=== PATIENT | male | born 1950 | race Caucasian/White ===

== ENCOUNTER → 2018-05-02 01:50 | Outpatient (CLI) | payer MEDICARE, OTHER, SELFPAY ==
[2018-05-02 08:35] LABS: Cholesterol 171 mg/dL (50-200); HDL Cholesterol 35 mg/dL (40-60); LDL CHOLESTEROL 104 mg/dL (<100); Triglyceride 179 mg/dL (30-150)
== END ==
PROVIDERS: PCP Family Medicine; Visit Provider Internal Medicine
DX: E78.5 Hyperlipidemia, unspecified (principal)
CPT/HCPCS: 36415; 80061; 83721

== ENCOUNTER 2018-07-23 11:06 | Outpatient (CLI) | payer MEDICARE, OTHER, SELFPAY ==
[2018-07-23 13:07] LABS: Cholesterol 187 mg/dL (50-200); Glucose 123 mg/dL (70-100); HDL Cholesterol 35 mg/dL (40-60); LDL CHOLESTEROL 127 mg/dL (<100); Triglyceride 168 mg/dL (30-150)
[2018-07-24 09:54] LABS: PSA, Screening 2.1 ng/ml (0-4.5)
== END 2018-07-23 11:26 ==
PROVIDERS: PCP Internal Medicine; Visit Provider Family Medicine
DX: N40.0 Benign prostatic hyperplasia without lower urinary tract symptoms (principal); E78.5 Hyperlipidemia, unspecified; R73.01 Impaired fasting glucose; Z12.5 Encounter for screening for malignant neoplasm of prostate
CPT/HCPCS: 36415; 80061; 82947; 83721; 84153

== ENCOUNTER 2018-07-31 01:09 | Outpatient (CLI) | payer MEDICARE, OTHER, SELFPAY ==
[2018-07-31 07:47] LABS: Hemoglobin A1C 5.7 % (4.5-6.2)
== END 2018-07-31 01:29 ==
PROVIDERS: PCP Family Medicine; Visit Provider Family Medicine
DX: R73.01 Impaired fasting glucose (principal); E78.5 Hyperlipidemia, unspecified
CPT/HCPCS: 36415; 80061; 83721; 83036

== ENCOUNTER 2019-07-29 09:32 | Outpatient (CLI) | payer MEDICARE, OTHER, SELFPAY ==
[2019-07-29 11:02] LABS: Calculated LDL 105 mg/dL; Cholesterol 168 mg/dL (50-200); HDL Cholesterol 37 mg/dL (40-60); Triglyceride 133 mg/dL (30-150)
[2019-07-30 10:36] LABS: PSA, Screening 2.8 ng/ml (0-4.5)
== END 2019-07-29 09:52 ==
PROVIDERS: PCP Family Medicine; Visit Provider Family Medicine
DX: E78.5 Hyperlipidemia, unspecified (principal); R73.01 Impaired fasting glucose; N40.0 Benign prostatic hyperplasia without lower urinary tract symptoms; Z12.5 Encounter for screening for malignant neoplasm of prostate
CPT/HCPCS: 36415; 80061; 84153; 83036

== ENCOUNTER 2020-05-01 08:18 | Emergency (ER) | payer MEDICARE, OTHER, SELFPAY ==
[2020-05-01] VITALS (24 sets, daily range): BP systolic 125–147; BP diastolic 64–75; PULSE 75–89; RESP 16; TEMP 36.2–36.3; O2SAT 94–99
--- NOTE | 2020-05-01 08:30 | DI.CT_ITS ---
EXAM: CT ABDOMEN PELVIS W CLINICAL HISTORY: Left lower quadrant pain, decreased bowel movement TECHNIQUE: Imaging Protocol: Axial computed tomography images with coronal and sagittal reformatted images were created and reviewed CONTRAST MATERIAL: Intravenous: Omnipaque 350 Contrast volume:100 mL Oral: No COMPARISON: CT ABD PELVIS WITH CONTRAST from 06/09/2010 FINDINGS: ABDOMEN: Lung Bases: Normal where visualized. Liver: Normal density. No measurable mass. Portal, Superior Mesenteric, and Splenic Veins: Unremarkable. Gallbladder and Biliary Tract: No radiodense calculus or dilation. Pancreas: Normal density. No abnormal calcifications. There is inflammatory stranding seen around t he pancreas. No focal fluid collection is seen. Spleen: Normal. Adrenals: No masses seen. Kidneys: Normal size, contour and axis. No radiodense stones or obstructive uropathy. No masses seen. Abdominal Aorta: Abdominal portion non-dilated. Atherosclerosis. Bowel: No obstruction or bowel wall thickening. Appendix is unremarkable. Peritoneal Cavity: No ascites, collection or mesenteric inflammatory response. Lymph Nodes: Within normal limits. Bones: There is an intramedullary lesion in the intertrochanteric region of the right femur. Its radha earance is most suggestive of an enchondroma. Mild retrolisthesis of L1 on L2. Degenerative changes seen in the spine. Soft Tissues: Unremarkable. PELVIS: Bladder: Symmetric distention, no gross wall thickening. Reproductive Organs: Unremarkable as visualized. Lymph Nodes: Within normal limits. Bones: Please see above. IMPRESSION: Findings most suggestive of acute pancreatitis. No focal fluid collection. RADIATION DOSE DELIVERED: 1,156.29mGy.cm Total DLP DATA REPOSITORY: All CT scans at this facility are submitted to the National Radiology Data Registry (NRDR) Dose Index Registry (DIR) with the [employer] (ACR). RADIATION OPTIMIZATION: All CT scans at this facility use at least one of these dose optimization te chniques: automated exposure control; mA and/or kV adjustment per patient size (includes targeted exa ms where dose is matched to clinical indication); or iterative reconstruction.
--- NOTE | 2020-05-01 08:36 | ED.GENADUL_ITS ---
Discharge Plan Disposition Patient Disposition: HOME Condition: Stable Discharge Details Chief Complaint: Abd Prob Clinical Impression: Pancreatitis, Enchondroma of right femur Primary Care Provider: Anam Sanon ED Provider: Mane Moss Home Meds and New Rx's Prescriptions: New oxycodone-acetaminophen [Percocet] 5-325 mg tablet 1 tab PO Q8H PRNQty: 8 RF: 0 ondansetron HCl [Zofran] 4 mg tablet 4 mg PO Q8H PRNQty: 8 RF: 0 Continued pravastatin 80 mg tablet 80 mg PO DAILY Qty: 90 RF: 3 omeprazole 20 mg capsule,delayed release(DR/EC) 20 mg PO DAILY PRN (Reason: gerd) Qty: 90 RF: 4 Discharge Instructions Instructions: Pancreatitis (ED), Benign Bone Tumor (DC) Additional Instructions: Your laboratory values and CT reveal that you have pancreatitis. Incidentally we saw a bone tumor on the right femur. Admission was offered today but you are feeling well and have declined. As we discussed, plenty of fluids, clear liquid diet, bowel rest. Advance diet as tolerated. I am providing a prescription for Percocet and Zofran. Take as directed. Percocet may cause drowsiness and/or constipation. Please watch for new or worsening symptoms and return to the ER for any concerns. I have set you up for an outpatient lab draw for your repeat values on 05-03-20 at 11:10 AM. I have also placed you on the callback list to help expedite outpatient appointment with your primary care provider hopefully on Saturday after your laboratory draw. They should be calling you tomorrow but if you do not hear from them early in the afternoon I do recommend you contact them. As we discussed, the izzy lesion is likely benign however outpatient follow-up with your primary care provider is still a good idea Medical Decision Making 69-year-old gentleman presents with left lower quadrant pain, lack of bowel movement for the past 3 days. He denies any symptoms like this in the past, denies previous abdominal surgeries. No other symptoms such as nausea, vomiting, chest pain, fever, back pain, dysuria, diarrhea, black tarry stools or bright red blood in his stools. He does have reproducible discomfort on palpation although there is no guarding or rebound. Will obtain routine laboratory values including lactate, will give IV fluid and obtain CT imaging of abdomen and pelvis for further evaluation. Diagnosis includes but not excluded to diverticulitis, pancreatitis, small bowel obstruction, ileus, UTI, renal stone, pyelonephritis, AAA etc. Laboratory values reveal a white count of 16.41 hemoglobin 15 hematocrit 45.5 platelet count 232. Sodium 135 potassium 3.8 chloride 99, creatinine 1.12 with a GFR greater than 60. Glucose of 123. Lactate 0.7 total bili 0.8 AST 16 ALT 23 alk phos 88. Lipase 3055. Urinalysis still pending. CT pending. I did discuss initial findings with patient. He denies history of pancreatitis. He does not drink alcohol on a regular basis. CT imaging read by virtual radiology as peripancreatic inflammation consistent with mild acute pancreatitis. Likely enchondroma of the right proximal femur Discussed CT findings with patient. Discussed treatment options. We discussed admitting him for bowel rest, IV medications, observation but at this time he declines and would prefer to be discharged home. Instead, we will provide IV fluid, Zofran, morphine now, p.o. challenge and reassess. If he tolerates this well we can certainly trial outpatient therapy with very close outpatient follow-up and return precautions. On reevaluation patient reports significant improvement with the medication and was able to tolerate p.o. intake without difficulty. Patient prefers to be discharged home. At this time I believe this is reasonable but as above we discussed the importance of close outpatient follow-up and the importance of returning to the ER for new or evolving symptoms. I will set the patient up for an outpatient blood draw on Saturday morning, 2 days from now, for a CBC, CMP and lipase. I will have the results sent to [facility] and in the meantime we will work on getting him an appointment for follow-up on Saturday after his labs are drawn. Medical Records Medical records reviewed: Yes I reviewed the patient's medical records. Lab Data Lab results reviewed: Yes I reviewed the patient's lab results. Lab results narrative: Laboratory Tests Range/Units 05/01/20 05/01/20 05/01/20 08:30 08:30 08:54 WBC (4.4-10.8) 10^3/uL 16.41 H RBC (4.36-5.78) 10^6/uL 5.13 Hgb (13.5-17.5) g/dL 15.0 Hct (40.0-50.0) % 45.5 MCV (80-95) fL 88.7 MCH (27.0-33.0) pg 29.2 MCHC (32.0-36.0) % 33.0 RDW (11.8-14.1) % 12.7 Plt Count (130-400) 10^3/uL 232 MPV (8.0-11.0) fL 10.4 Immature Gran % See Differential Neutrophils % 78.0 Lymphocytes % 7.0 Atypical Lymphs % 2 Monocytes % 13.0 Eosinophils % 0.0 Basophils % 0.0 Metamyelocytes % 0 Myelocytes % 0 Promyelocytes % 0 Absolute Neutrophils (1.2-6.7) 10^3/uL 12.80 H Absolute Lymphocytes (1.2-3.4) 10^3/uL 1.48 Absolute Monocytes (0.1-0.8) 10^3/uL 2.13 H Absolute Eosinophils (0.0-0.7) 10^3/uL 0.00 Absolute Basophils (0.0-0.2) 10^3/uL 0.00 RBC Morphology Normal Sodium (136-145) mmol/L 135 L Potassium (3.5-5.1) mmol/L 3.8 Chloride (98-107) mmol/L 99 Carbon Dioxide (21.0-32.0) mmol/L 25.1 Anion Gap (3-11) mmol/L 10.9 BUN (7-18) mg/dL 13 Creatinine (0.70-1.30) mg/dL 1.12 Estimated GFR/1.73 m2 (mL/min/1.73m2) >= 60.00 Glucose (74-106) mg/dL 123 H Lactate (0.6-1.4) mmol/L 0.7 Calcium (8.5-10.1) mg/dL 9.3 Total Bilirubin (0.2-1.0) mg/dL 0.8 AST (15-37) U/L 16 ALT (16-63) U/L 23 Alkaline Phosphatase (46-116) U/L 80 Total Protein (6.4-8.2) g/dL 8.6 H Albumin (3.4-5.0) g/dL 4.0 Lipase (73-393) U/L 3055 H Urine Color (Yellow) Urine Clarity (Clear) Urine pH (5-8) Ur Specific [place] (1.005-1.025) Urine Protein (Negative) mg/dL Urine Ketones (Negative) mg/dL Urine Blood (Negative) Urine Nitrite (Negative) Urine Bilirubin (Negative) Urine Urobilinogen (Up TO 0.2) EU/dL Ur Leukocyte Esterase (Negative) Urine RBC (0-2) HPF Urine WBC (0-5) HPF Ur Epithelial Cells (Negative) HPF Urine Crystals (Negative) HPF Urine Bacteria (Negative) HPF Urine Casts (Negative) LPF Urine Mucus (Negative) Ur Culture Indicated? Urine Glucose (Negative) mg/dL Range/Units 05/01/20 10:16 WBC (4.4-10.8) 10^3/uL RBC (4.36-5.78) 10^6/uL Hgb (13.5-17.5) g/dL Hct (40.0-50.0) % MCV (80-95) fL MCH (27.0-33.0) pg MCHC (32.0-36.0) % RDW (11.8-14.1) % Plt Count (130-400) 10^3/uL MPV (8.0-11.0) fL Immature Gran % Neutrophils % Lymphocytes % Atypical Lymphs % Monocytes % Eosinophils % Basophils % Metamyelocytes % Myelocytes % Promyelocytes % Absolute Neutrophils (1.2-6.7) 10^3/uL Absolute Lymphocytes (1.2-3.4) 10^3/uL Absolute Monocytes (0.1-0.8) 10^3/uL Absolute Eosinophils (0.0-0.7) 10^3/uL Absolute Basophils (0.0-0.2) 10^3/uL RBC Morphology Sodium (136-145) mmol/L Potassium (3.5-5.1) mmol/L Chloride (98-107) mmol/L Carbon Dioxide (21.0-32.0) mmol/L Anion Gap (3-11) mmol/L BUN (7-18) mg/dL Creatinine (0.70-1.30) mg/dL Estimated GFR/1.73 m2 (mL/min/1.73m2) Glucose (74-106) mg/dL Lactate (0.6-1.4) mmol/L Calcium (8.5-10.1) mg/dL Total Bilirubin (0.2-1.0) mg/dL AST (15-37) U/L ALT (16-63) U/L Alkaline Phosphatase (46-116) U/L Total Protein (6.4-8.2) g/dL Albumin (3.4-5.0) g/dL Lipase (73-393) U/L Urine Color (Yellow) Yellow Urine Clarity (Clear) Clear Urine pH (5-8) 6.0 Ur Specific [place] (1.005-1.025) <= 1.005 Urine Protein (Negative) mg/dL Negative Urine Ketones (Negative) mg/dL 40 H Urine Blood (Negative) Trace-lysed H Urine Nitrite (Negative) Negative Urine Bilirubin (Negative) Negative Urine Urobilinogen (Up TO 0.2) EU/dL 0.2 Ur Leukocyte Esterase (Negative) Negative Urine RBC (0-2) HPF 0-2 Urine WBC (0-5) HPF 0-2 Ur Epithelial Cells (Negative) HPF Negative Urine Crystals (Negative) HPF Negative Urine Bacteria (Negative) HPF Negative Urine Casts (Negative) LPF Negative Urine Mucus (Negative) Trace Ur Culture Indicated? No Urine Glucose (Negative) mg/dL Negative HPI General Mode of arrival: ambulatory . Date/Time Provider Initiated Documentation: 05/01/20 08:19 . Limitations to Documentation: no limitations . Information obtained by: patient . HPI Narrative: This is a 69-year-old gentleman with past medical history that includes GERD, hyperlipidemia, BPH, presenting for evaluation of left lower abdominal pain that began on Saturday, has been constant, dull, aching, 7 out of 10. He has not had a bowel movement in 3 days. He denies recent sick contacts, travel or bad food exposure. He denies fever, chest pain, shortness of breath, nausea, vomiting, diarrhea, black tarry stools, bright red blood in stools, dysuria, hematuria. The pain does not radiate. There is nothing he can do to make the pain worse or better. He spoke with a friend who is a nurse and he presents concerned about diverticulitis. Denies history of diverticulosis. Related Data Home Medications Medication Instructions Recorded Confirmed pravastatin 80 mg tablet 80 mg PO DAILY #90 tab-cap 10/25/19 08/09/20 omeprazole 20 mg capsule,delayed 20 mg PO DAILY PRN #90 tab-cap 01/08/20 05/01/20 release ondansetron HCl [Zofran] 4 mg PO Q8H PRN #8 tab 05/01/20 oxycodone-acetaminophen [Percocet] 1 tab PO Q8H PRN #8 tab 05/01/20 Previous Rx's Medication Instructions Recorded pravastatin 80 mg tablet 80 mg PO DAILY #90 tab-cap 07/17/19 omeprazole 20 mg capsule,delayed 20 mg PO DAILY PRN #90 tab-cap 01/08/20 release ondansetron HCl [Zofran] 4 mg PO Q8H PRN #8 tab 05/01/20 oxycodone-acetaminophen [Percocet] 1 tab PO Q8H PRN #8 tab 05/01/20 Allergies Allergy/AdvReac Type Severity Reaction Status Date / Time No Known Allergies Allergy Verified 05/01/20 08:27 General Stated Complaint: Abd Prob MELQUIADES: 3 Review of Systems Constitutional Constitutional: Denies fatigue, Denies fever(s) and Denies headache(s) ENT Ears, Nose, Mouth, and Throat: Denies headache(s) and Denies neck pain Cardiovascular Cardiovascular: Denies chest pain and Denies dyspnea Respiratory Respiratory: Denies cough and Denies dyspnea Gastrointestinal Gastrointestinal: Denies abdominal pain, Denies melena, Denies hematochezia, Reports constipation, Denies diarrhea and Denies vomiting Genitourinary Genitourinary: Denies urinary frequency Musculoskeletal Musculoskeletal: Denies back pain and Denies neck pain Integumentary/Breasts Skin/Breast: Denies rash Neurologic Neurologic: Denies headache(s) Endocrine Endocrine: Denies fatigue Hematologic/Lymphatic Hematologic/Lymphatic: Denies easy bleeding and Denies easy bruising PFSH Surgical History Extraction of cataract (~2000) o.u. Family History Mother , AGE 77 Diabetes Heart disease Breast cancer Father , AGE 74 Hyperlipidemia Prostate cancer Brother Prostate cancer Brother Prostate cancer Brother No problems noted. Maternal Grandfather , AGE 61 Heart disease Throat cancer Maternal Grandmother , AGE 85 No problems noted. Paternal Grandmother , AGE 85 No problems noted. Son No problems noted. Daughter No problems noted. Social History Smoking/Tobacco Use Status: Former Tobacco Use Second Hand Exposure: Yes Alcohol Intake: current Alcohol Intake frequency: a few times a month Alcohol type: beer and hard liquor Drug use: Never Substance use type: does not use Caregiver/Support person: No Household members: none Housing: house Communication Needs: None Do you need help understanding health information?: Rarely Pets and animals: No Sexually active: No Do you think of yourself as: straight/heterosexual Current gender identity: male What is your relationship status?: How often do you talk on the phone with friends or family?: three or more times per week How often do you get together with friends or relatives?: three or more times per week How often do you attend mosque or confucianism services?: decline to answer Do you belong to any clubs or organized social groups?: yes Panel score (0-1 are the most socially isolated patients): 2 What type of physical activity do you participate in: other Details: Yard work, snowmobiling, hunting/fishing Duration: 30-45 minutes/day Frequency: daily Masha/Jewish: Church Special masha needs: No Seatbelt use: always Helmet use: Yes Helmet use: always Drive intox or ride w/intox 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 Exam Const General: cooperative, healthy appearing, comfortable and no acute distress Orientation: alert, awake and oriented x3 HENIA Head: normal to inspection, normocephalic and atraumatic Mouth: moist mucous membranes Eyes Conjunctivae: conjunctivae normal Sclera: sclerae normal Neck Neck: normal visual inspection, trachea midline and supple Resp Effort & Inspection: normal respiratory effort and able to speak in complete sentences Auscultation: clear to auscultation bilaterally Cardio Rate: regular rate Rhythm: regular rhythm GI Inspection: normal to inspection Palpation: soft, not firm, no guarding and tender in the LLQ; with no rebound tenderness Auscultation: normal bowel sounds Back/Spine/Pelvis Back: No back tenderness Skin General skin exam: no rashes or lesions noted Neuro General: patient alert, patient awake, patient oriented x3, moves all extremities and no focal motor deficits Cranial Nerves: CN's II-XI intact bilaterally Cognition: normal cognition Speech: speech normal Gait: normal gait Motor: muscle tone normal throughout Sensory Exam: no sensory deficits noted Extrem General: normal to inspection, full ROM, capillary refill normal, no pedal edema and no calf tenderness Psych Appearance: grossly normal Mental Status: mental status grossly normal Course Vital Signs Vital signs: Vital Signs Temperature 36.2 C L 05/01/20 08:24 Pulse 89 05/01/20 08:24 Respiratory Rate 16 05/01/20 08:24 Blood Pressure 147/75 H 05/01/20 08:24 Pulse Oximetry 98 05/01/20 08:24 Temperature 36.2 C L 05/01/20 08:24 Temperature Source Skin 05/01/20 08:24 Pulse 89 05/01/20 08:24 Respiratory Rate 16 05/01/20 08:24 Respiratory Effort Non-Labored 05/01/20 08:24 Blood Pressure 147/75 H 05/01/20 08:24 Blood Pressure Position Sitting 05/01/20 08:24 Pulse Oximetry 98 05/01/20 08:24 Oxygen Delivery Method Room Air 05/01/20 08:24 Oxygen Flow Rate 0 05/01/20 08:24 Pain Level 8 05/01/20 08:24
[2020-05-01] MEDS: Normal Saline 1,000 ML 1000 ML IV ×2 (08:45→10:48)
[2020-05-01 08:48] LABS: HCT 45.5 % (40.0-50.0); MCH 29.2 pg (27.0-33.0); MCV 88.7 fL (80-95); MPV 10.4 fL (8.0-11.0); Nucleated RBC 0 %; Platelet Count 232 10^3/uL (130-400); RBC 5.13 10^6/uL (4.36-5.78); RDW 12.7 % (11.8-14.1); RDW-SD 41.3 fL; WBC 16.41 10^3/uL (4.4-10.8)
[2020-05-01 09:03] LABS: Lactate 0.7 mmol/L (0.6-1.4)
[2020-05-01 09:04] LABS: Absolute Monocyte Count 2.13 10^3/uL (0.1-0.8)
[2020-05-01 09:05] LABS: Absolute Lymphocyte Count 1.48 10^3/uL (1.2-3.4); Atypical Lymphocytes % 2; Diff Comment Manual Differential; Metamyelocytes % 0; Myelocytes % 0; Promyelocytes % 0; RBC Morphology Normal
[2020-05-01 09:08] LABS: ALT 23 U/L (16-63); AST 16 U/L (15-37); Alkaline Phosphatase 80 U/L (46-116); Anion Gap 10.9 mmol/L (3-11); BUN 13 mg/dL (7-18); Bilirubin, Total 0.8 mg/dL (0.2-1.0); CO2 25.1 mmol/L (21.0-32.0); CREATININE 1.12 mg/dL (0.70-1.30); Calcium 9.3 mg/dL (8.5-10.1); Chloride 99 mmol/L (98-107); Glucose 123 mg/dL (74-106); Potassium 3.8 mmol/L (3.5-5.1); Sodium 135 mmol/L (136-145); Total Protein 8.6 g/dL (6.4-8.2)
[2020-05-01 09:10] LABS: Lipase 3055 U/L (73-393)
[2020-05-01] MEDS: Omnipaque 350 MG/ML 100 ML BTL IV (09:40)
[2020-05-01] MEDS: Normal Saline - Diluent 50 ML VIAL IV (09:41)
[2020-05-01] MEDS: Normal Saline Flush 10 ML SYR IVP (09:42)
[2020-05-01 10:26] LABS: Bilirubin Negative (Negative); Blood Trace-lysed (Negative); Clarity Clear (Clear); Glucose Negative (Negative); Ketones 40 mg/dL (Negative); Leukocyte Esterase Negative (Negative); Nitrite Negative (Negative); Specific Gravity <= 1.005 (1.005-1.025); Urobilinogen 0.2 EU/dL (Up TO 0.2)
--- NOTE | 2020-05-01 10:31 | DI.VRAD_ITS ---
PROCEDURE INFORMATION: Exam: CT Abdomen And Pelvis With Contrast Exam date and time: 05/01/2020 8:38 AM Age: 69 years old Clinical indication: Other: Left lower quadrant pain, decreased bowel movement; Additional info: Left lower quadrant pain, decreased bowel movement since 04/29/20 TECHNIQUE: Imaging protocol: Computed tomography of the abdomen and pelvis with intravenous contrast. Radiation optimization: All CT scans at this facility use at least one of these dose optimization techniques: automated exposure control; mA and/or kV adjustment per patient size (includes targeted exams where dose is matched to clinical indication); or iterative reconstruction. Contrast material: OMNIPAQUE 350; Contrast volume: 100 ml; Contrast route: INTRAVENOUS (IV); COMPARISON: No relevant prior studies available. FINDINGS: Liver: Unremarkable. No mass. Gallbladder and bile ducts: Unremarkable. No calcified stones. No ductal dilation. Pancreas: There is mild peripancreatic inflammatory stranding and fluid. Spleen: Unremarkable. No splenomegaly. Likely incidental subcentimeter splenule. Adrenals: Unremarkable. No mass. Kidneys and ureters: Unremarkable. No hydronephrosis. Stomach and bowel: Unremarkable. No obstruction. No mucosal thickening. Appendix: No evidence of appendicitis. Intraperitoneal space: Unremarkable. No free air. No significant fluid collection. Vasculature: Unremarkable. No abdominal aortic aneurysm. Lymph nodes: No enlarged lymph nodes. Bladder: Unremarkable as visualized. Reproductive: Unremarkable as visualized. Bones/joints: Lumbar spondylosis. Transitional lumbosacral anatomy with 6 [id number] lumbar vertebral bodies. Grade 1 retrolisthesis of L2 on L3. Pronounced degenerative disc disease of L5-L6 with moderate to severe bilateral neural foraminal narrowing. There is a 2.8 cm right femoral intratrochanteric intramedullary lesion with a narrow zone of transition, sharply defined margins and ring and arc calcifications. No endosteal scalloping and nonexpansile. No gross bone destruction, no periosteal reaction and no soft tissue mass. Soft tissues: Unremarkable. IMPRESSION: 1. Peripancreatic inflammation consistent with mild acute pancreatitis. 2. Likely enchondroma of the right proximal femur as described above. Dictated and Authenticated by: Dez Fry MD. Ordering:LESLIE Gilliam MD
[2020-05-01 10:37] LABS: Bacteria Negative HPF (Negative); C & S Indicated? No; Casts Negative LPF (Negative); Crystals Negative HPF (Negative); Epithelial Cells Negative HPF (Negative); Mucus Trace (Negative); RBC 0-2 HPF (0-2); WBC 0-2 HPF (0-5)
[2020-05-01] MEDS: Ondansetron 4 MG/2 ML VIAL IVP (10:47)
--- NOTE | 2020-05-01 11:38 | NUR.NOTE ---
Nursing Note: Referral for follow up with [facility] after the lab draw on @ 11:10am. Laly Flores
== END 2020-05-01 12:15 | disposition home or self-care (01) ==
PROVIDERS: Emergency Provider Physician Assistant; PCP Family Medicine
DX: K85.80 Other acute pancreatitis without necrosis or infection (principal); K59.00 Constipation, unspecified
CPT/HCPCS: 36415; 80053; 83690; 96361; 96374; 96375; 99285; 74177; 81003; 81015; 83605; 85025; J2405; J3490

== ENCOUNTER 2020-05-03 04:11 | Outpatient (CLI) | payer MEDICARE, OTHER, SELFPAY ==
[2020-05-03 11:39] LABS: Abs Immature Grans 0.05 10^3/uL (0.0-0.06); Absolute Basophil Count 0.02 10^3/uL (0.0-0.2); Absolute Eosinophil Count 0.12 10^3/uL (0.0-0.7); Absolute Lymphocyte Count 0.74 10^3/uL (1.2-3.4); Absolute Monocyte Count 1.42 10^3/uL (0.1-0.8); Absolute Neutrophil Count 8.18 10^3/uL (1.2-6.7); Basophils % 0.2; Eosinophils % 1.1; HCT 38.8 % (40.0-50.0); HGB 12.8 g/dL (13.5-17.5); Immature Grans % 0.5; MCH 29.7 pg (27.0-33.0); MPV 9.2 fL (8.0-11.0); Monocytes % 13.5; Neutrophils % 77.7; Nucleated RBC 0 %; Platelet Count 277 10^3/uL (130-400); RBC 4.31 10^6/uL (4.36-5.78); RDW 12.4 % (11.8-14.1); WBC 10.53 10^3/uL (4.4-10.8)
[2020-05-03 11:54] LABS: ALT 20 U/L (16-63); AST 13 U/L (15-37); Albumin 3.2 g/dL (3.4-5.0); Alkaline Phosphatase 68 U/L (46-116); Anion Gap 7.1 mmol/L (3-11); BUN 14 mg/dL (7-18); Bilirubin, Total 0.5 mg/dL (0.2-1.0); CO2 27.9 mmol/L (21.0-32.0); CREATININE 1.12 mg/dL (0.70-1.30); Calcium 8.8 mg/dL (8.5-10.1); Chloride 100 mmol/L (98-107); Glucose 137 mg/dL (74-106); Lipase 299 U/L (73-393); Sodium 135 mmol/L (136-145); Total Protein 7.5 g/dL (6.4-8.2)
== END 2020-05-03 04:31 ==
PROVIDERS: PCP Family Medicine; Visit Provider Physician Assistant
DX: K85.90 Acute pancreatitis without necrosis or infection, unspecified (principal)
CPT/HCPCS: 36415; 80053; 83690; 85025

== ENCOUNTER 2020-11-11 00:49 | Outpatient (CLI) | payer MEDICARE, OTHER, SELFPAY ==
--- NOTE | 2020-11-11 08:15 | DI.RAD_ITS ---
EXAM: XR KNEE LT 3V AP,LAT,LIVIER CLINICAL HISTORY: left knee pain,M25.562. TECHNIQUE: 2D digital imaging was performed. COMPARISON: No exams were available for comparison FINDINGS: There is moderate narrowing to severe narrowing of the medial femoral tibial joint. There is mild pe riarticular spurring and sclerosis. There is spurring at the articular aspect of the patella as well as enthesophytes. Small calcification is seen adjacent to the medial femoral condyle which could re present ligamentous calcification. 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 DATA REPOSITORY: RADIATION DOSE DELIVERED:
--- NOTE | 2020-11-11 13:15 | DI.RAD_ITS ---
EXAM: XR KNEE RT 3V AP,LAT,LIVIER CLINICAL HISTORY: knee pain bilateral,rt knee pain,m25.561. TECHNIQUE: 2D digital imaging was performed. COMPARISON: CR XR KNEE LT 3V AP,LAT,LIVIER from 11/11/2020 FINDINGS: There is moderate to severe narrowing medial femoral tibial joint space. There is mild periarticular spurring. There is mild spurring at the articular aspect of the patella. Enthesophytes are also se en at the patella. IMPRESSION: Moderate to severe degenerative changes of the medial femoral tibial joint.. DATA REPOSITORY: RADIATION DOSE DELIVERED:
== END 2020-11-11 00:50 ==
LOC: DI 00:50
PROVIDERS: PCP Family Medicine; Visit Provider Family Medicine
DX: M25.561 Pain in right knee (principal); M25.562 Pain in left knee; M17.0 Bilateral primary osteoarthritis of knee
CPT/HCPCS: 73562

== ENCOUNTER 2020-11-24 04:00 | Outpatient (CLI) | payer MEDICARE, OTHER, SELFPAY ==
[2020-11-24 07:38] LABS: Hemoglobin A1C 5.9 % (<5.7)
[2020-11-24 08:03] LABS: Calculated LDL 97 mg/dL (<100); Cholesterol 188 mg/dL (<200); HDL Cholesterol 36 mg/dL (40-60); Triglyceride 276 mg/dL (<150)
[2020-11-24 17:31] LABS: PSA, Screening 2.8 ng/mL (0.0-6.5)
== END 2020-11-24 04:01 | disposition home or self-care (01) ==
LOC: LBO 04:00
PROVIDERS: PCP Family Medicine; Visit Provider Family Medicine
DX: E78.5 Hyperlipidemia, unspecified (principal); R73.9 Hyperglycemia, unspecified; N40.0 Benign prostatic hyperplasia without lower urinary tract symptoms; Z12.5 Encounter for screening for malignant neoplasm of prostate
CPT/HCPCS: 36415; 80061; 84153; 83036

== ENCOUNTER 2021-04-05 13:57 | Outpatient (CLI) | payer MEDICARE, OTHER, SELFPAY ==
--- NOTE | 2021-04-05 11:19 | DI.RAD_ITS ---
Exam(s) XR CHEST 2V PA LATERAL EXAM: XR CHEST 2V PA LATERAL CLINICAL HISTORY: COUGH R05. TECHNIQUE: 2D digital imaging was performed. COMPARISON: No exams were available for comparison FINDINGS: Heart size is normal. The mediastinum is not widened. Left lung is clear. Mild increased markings in the right lung base noted, not evident on the previou s study of 2011. No confluent infiltrate seen on the lateral view and therefore this possibly is rel ated to gynecomastia. There are no pleural effusions. No pulmonary edema. No pneumothorax impression IMPRESSION: Subtle lower right lung field finding as described above. If clinically indicated this could be furt her studied with CT scan.There is possibly that this may be related to overlying gynecomastia. DATA REPOSITORY: RADIATION DOSE DELIVERED:
== END 2021-04-05 14:17 ==
PROVIDERS: PCP Family Medicine; Visit Provider Physician Assistant Medical
DX: R05 Cough (principal)
CPT/HCPCS: 71046

== ENCOUNTER 2021-04-05 14:34 | Outpatient (REF) | payer MEDICARE, OTHER, SELFPAY ==
[2021-04-07 11:49] LABS: COVID-19 RT-PCR UVMMC Result Negative (Negative)
== END 2021-04-05 14:35 | disposition home or self-care (01) ==
LOC: LBN 14:34
PROVIDERS: PCP Family Medicine; Visit Provider Physician Assistant Medical
DX: Z20.822 Contact with and (suspected) exposure to COVID-19 (principal); J06.9 Acute upper respiratory infection, unspecified
CPT/HCPCS: U0003

== ENCOUNTER 2021-04-06 02:00 | Outpatient (CLI) | payer MEDICARE, OTHER, SELFPAY ==
--- NOTE | 2021-04-06 | DI.CT_ITS ---
Exam(s) CT CHEST WO EXAM: CT CHEST WO CLINICAL HISTORY: COUGH, R05,F/U CXR. TECHNIQUE: Multi planar reconstructions were performed. CONTRAST MATERIAL: None COMPARISON: CT CT ABDOMEN PELVIS W from 05/01/[address] ABDOMEN PELVIS W from 05/01/2020 CR XR CHEST 2V PA LATERAL from 04/05/2021 FINDINGS: CHEST: LUNGS: There are no confluent pulmonary infiltrates nor pleural effusions. Mild focal benign-appeari ng pleural thickening is noted posteriorly over the right lower lobe. Mild anterior pleural thickeni ng over the right middle lobe is unchanged from April 2020 and is possibly what is accounting for th e subtle finding on yesterday's chest x-ray.. There are mild increased markings noted in the inferio r lingular segment of the left lung. There is mild bilateral gynecomastia. MEDIASTINUM: There is no obvious hilar nor mediastinal adenopathy. Visualized thyroid unremarkable.No obvious axillary adenopathy CARDIAC: Heart size is normal. There is no pericardial effusion.Caliber of the thoracic aorta is wit hin normal limits. VISUALIZED UPPER ABDOMEN:No adrenal mass is evident. OSSEOUS: No significant osseous lesions.. IMPRESSION: 1. There is mild benign-appearing pleural thickening over the anterior aspect of the right middle lob e there is also mild bilateral gynecomastia. This finding was probably account for the subtle findin g in the lower right chest on yesterday's chest x-ray. There are no confluent infiltrates nor pleura l effusions. No pneumothorax. 2. No other significant intrathoracic findings RADIATION DOSE DELIVERED: 743.5mGy.cm Total DLP DATA REPOSITORY: All CT scans at this facility are submitted to the National Radiology Data Registry (NRDR) Dose Index Registry (DIR) with the [employer] (ACR). RADIATION OPTIMIZATION: All CT scans at this facility use at least one of these dose optimization te chniques: automated exposure control; mA and/or kV adjustment per patient size (includes targeted exa ms where dose is matched to clinical indication); or iterative reconstruction.
== END 2021-04-06 02:20 ==
PROVIDERS: PCP Family Medicine; Visit Provider Physician Assistant Medical
DX: J92.9 Pleural plaque without asbestos (principal); N62 Hypertrophy of breast
CPT/HCPCS: 71250

== ENCOUNTER 2021-11-22 01:34 | Outpatient (CLI) | payer MEDICARE, OTHER, SELFPAY ==
[2021-11-22 08:06] LABS: HCT 45.2 % (40.0-50.0); HGB 14.7 g/dL (13.5-17.5); MCH 29.3 pg (27.0-33.0); MCHC 32.5 % (32.0-36.0); MCV 90.2 fL (80-95); MPV 9.1 fL (8.0-11.0); Platelet Count 279 10^3/uL (130-400); RBC 5.01 10^6/uL (4.36-5.78); RDW 12.3 % (11.8-14.1); RDW-SD 40.8 fL; WBC 7.48 10^3/uL (4.4-10.8)
[2021-11-22 10:24] LABS: Anion Gap 10.1 mmol/L (3-11); BUN 16 mg/dL (7-18); CO2 26.9 mmol/L (21.0-32.0); CREATININE 1.2 mg/dL (0.70-1.30); Chloride 104 mmol/L (98-107); Cholesterol 211 mg/dL (<200); Estimated GFR 59.51 (mL/min/1.73m2); Glucose 129 mg/dL (74-106); HDL Cholesterol 27 mg/dL (40-60); Potassium 4.5 mmol/L (3.5-5.1); Sodium 141 mmol/L (136-145); Triglyceride 573 mg/dL (<150)
[2021-11-22 10:36] LABS: LDL CHOLESTEROL 80 mg/dL (<100)
[2021-11-22 11:49] LABS: Lab Add On Test DONE
[2021-11-22 18:27] LABS: PSA, Screening 3.2 ng/mL (0.0-6.5)
== END 2021-11-22 01:35 | disposition home or self-care (01) ==
LOC: LBO 01:35
PROVIDERS: PCP Family Medicine; Visit Provider Family Medicine
DX: E87.1 Hypo-osmolality and hyponatremia (principal); N40.0 Benign prostatic hyperplasia without lower urinary tract symptoms; Z12.5 Encounter for screening for malignant neoplasm of prostate; E78.5 Hyperlipidemia, unspecified; R61 Generalized hyperhidrosis; R73.9 Hyperglycemia, unspecified
CPT/HCPCS: 36415; 80048; 80061; 83721; 84153; 85027; 83036

== ENCOUNTER 2022-11-20 08:49 | Outpatient (CLI) | payer MEDICARE, OTHER, SELFPAY ==
[2022-11-20 12:25] LABS: Abs Immature Grans 0.05 10^3/uL (0.0-0.06); Absolute Basophil Count 0.03 10^3/uL (0.0-0.2); Absolute Lymphocyte Count 1.35 10^3/uL (1.2-3.4); Absolute Monocyte Count 0.84 10^3/uL (0.1-0.8); Absolute Neutrophil Count 4.05 10^3/uL (1.2-6.7); Basophils % 0.5; Eosinophils % 3.1; HCT 46.2 % (40.0-50.0); HGB 14.7 g/dL (13.5-17.5); Immature Grans % 0.8; Lymphocytes % 20.7; MCH 28.8 pg (27.0-33.0); MCHC 31.8 % (32.0-36.0); MCV 90 fL (80-95); MPV 10.1 fL (8.0-11.0); Monocytes % 12.9; Platelet Count 247 10^3/uL (130-400); RBC 5.11 10^6/uL (4.36-5.78); RDW 12.6 % (11.8-14.1); RDW-SD 42.5 fL; WBC 6.52 10^3/uL (4.4-10.8)
[2022-11-20 12:51] LABS: BUN 20 mg/dL (7-18); CREATININE 1.2 mg/dL (0.70-1.30); Calcium 9.4 mg/dL (8.5-10.1); Calculated LDL 81 mg/dL (<100); Chloride 104 mmol/L (98-107); Cholesterol 185 mg/dL (<200); Estimated GFR 63.85 (mL/min/1.73m2); Glucose 124 mg/dL (74-106); HDL Cholesterol 33 mg/dL (40-60); Potassium 4.9 mmol/L (3.5-5.1); Sodium 140 mmol/L (136-145); Triglyceride 356 mg/dL (<150)
[2022-11-20 13:05] LABS: Hemoglobin A1C 5.8 % (<5.7)
[2022-11-20 23:31] LABS: PSA, Screening 2.9 ng/mL (<=6.5)
== END 2022-11-20 08:50 | disposition home or self-care (01) ==
LOC: LOS 08:50
PROVIDERS: PCP Family Medicine; Referring Provider Family Medicine; Visit Provider Family Medicine
DX: D64.9 Anemia, unspecified (principal); N40.0 Benign prostatic hyperplasia without lower urinary tract symptoms; Z12.5 Encounter for screening for malignant neoplasm of prostate; E78.5 Hyperlipidemia, unspecified; R73.9 Hyperglycemia, unspecified; E87.1 Hypo-osmolality and hyponatremia
CPT/HCPCS: 36415; 80048; 80061; 84153; 83036; 85025

== ENCOUNTER → 2023-08-05 07:52 | Outpatient (BNVA) | payer MEDICARE, OTHER, SELFPAY | PROVIDERS: PCP Family Medicine; Referring Provider Family Medicine | DX: M17.11 Unilateral primary osteoarthritis, right knee (principal); M17.12 Unilateral primary osteoarthritis, left knee | CPT/HCPCS: 99202 ==

== ENCOUNTER → 2023-10-03 09:47 | Outpatient (BNVA) | payer MEDICARE, OTHER, SELFPAY | PROVIDERS: PCP Family Medicine; Referring Provider Family Medicine | DX: M17.12 Unilateral primary osteoarthritis, left knee (principal); M17.11 Unilateral primary osteoarthritis, right knee | CPT/HCPCS: 20610; J1040 ==

== ENCOUNTER 2023-11-06 08:48 | Outpatient (CLI) | payer MEDICARE, OTHER, SELFPAY ==
[2023-11-06 13:01] LABS: Calculated LDL 162 mg/dL (<100); Cholesterol 246 mg/dL (<200); HDL Cholesterol 52 mg/dL (40-60); Magnesium 2.1 mg/dL (1.8-2.4); Triglyceride 162 mg/dL (<150); Vitamin B12 347 pg/mL (193-986)
[2023-11-06 19:07] LABS: PSA, Screening 3.8 ng/mL (<=6.5)
== END 2023-11-06 08:49 | disposition home or self-care (01) ==
LOC: LOS 08:48
PROVIDERS: PCP Family Medicine; Referring Provider Family Medicine; Visit Provider Family Medicine
DX: E83.42 Hypomagnesemia (principal); Z12.5 Encounter for screening for malignant neoplasm of prostate; E11.51 Type 2 diabetes mellitus with diabetic peripheral angiopathy without gangrene
CPT/HCPCS: 36415; 80061; 84153; 82607; 83036; 83735

== ENCOUNTER 2025-01-08 00:57 | Outpatient (CLI) | payer MEDICARE, SELFPAY ==
[2025-01-08 13:35] LABS: Calculated LDL 107 mg/dL (<100); Cholesterol 191 mg/dL (<200); HDL Cholesterol 39 mg/dL (>or=40); Triglyceride 226 mg/dL (<150)
[2025-01-08 17:58] LABS: PSA, Diagnostic 3.5 ng/mL (<=6.5)
[2025-01-10 13:34] LABS: HIV-1/2 Ag & Ab Screen Negative (Negative)
[2025-01-11 10:43] LABS: Hepatitis C Ab w Rflx HCV PCR Negative (Negative)
[2025-01-11 11:06] LABS: HBs Antibody, Quant <3.1 mIU/mL (See Note); Hep B Surface Ab Negative (See Note); Hepatitis B Core Antibody Negative (Negative); Hepatitis B Surface Antigen Negative (Negative)
== END 2025-01-08 00:58 | disposition home or self-care (01) ==
LOC: LOS 00:57
PROVIDERS: PCP Family Medicine; Visit Provider Family Medicine
DX: Z11.4 Encounter for screening for human immunodeficiency virus [HIV] (principal); C61 Malignant neoplasm of prostate; Z11.59 Encounter for screening for other viral diseases; E78.5 Hyperlipidemia, unspecified
CPT/HCPCS: 36415; 80061; 86704; 86706; 86803; 87340; 87389; 84153